=== PATIENT | female | born 1955 ===

== ENCOUNTER 2024-07-10 11:15 | Inpatient (IN) | payer OTHER ==
[~2024-07-10] VITALS: Ht 317.5 cm; Wt 82.1 kg
[2024-07-10 12:49] LABS: COVID-19 AG NEGATIVE (NEGATIVE)
[2024-07-10 13:09] VITALS: BP 112/73
[2024-07-10 13:15] VITALS: BP 135/80
[2024-07-10] MEDS ORDERED: LIPITOR20 MG PO (13:16)
[2024-07-10] MEDS ORDERED: SYNTHROID100 MCG PO (13:16)
[2024-07-10] MEDS ORDERED: MULTIPLE VITAM1 EAC2 PO (13:16)
[2024-07-16] MEDS ORDERED: METHYLPREDNISOLONE SOD SUCC 125 MG VIAL ONE ×3 (06:56→07:03)
[2024-07-16] MEDS ORDERED: VANCOMYCIN HCL 1,000 MG VIAL ONE ×4 (06:57→07:14)
[2024-07-16] MEDS ORDERED: CEFAZOLIN SODIUM 1,000 MG VIAL ONE ×3 (07:01→11:13)
[2024-07-16] MEDS ORDERED: HEMOSTATIC MATRIX 1 KIT KIT TOP ONE (07:01)
[2024-07-16] MEDS ORDERED: METHYLPREDNISOLONE ACETATE 80 MG/ML VIAL ONE ×2 (07:15→08:23)
[2024-07-16] MEDS ORDERED: PERCOCET 5-3251 EACH PO (07:16)
[2024-07-16] MEDS ORDERED: MEDROLPACK PO (07:16)
[2024-07-16] MEDS ORDERED: AMOX-CLAV 875-1 EACH PO (07:17)
[2024-07-16] MEDS ORDERED: ZOFRAN8 MG PO (07:17)
[2024-07-16] MEDS ORDERED: COLACE100 MG PO (07:17)
[2024-07-16] MEDS ORDERED: NEURONTIN800 MG PO (07:18)
[2024-07-16] MEDS ORDERED: GABAPENTIN100 M2 PO (07:18)
[2024-07-16] MEDS ORDERED: ENALAPRILAT DIHYDRATE 1.25 MG/ML VIAL IV PRN (07:45)
[2024-07-16] MEDS ORDERED: 0.9 % SODIUM CHLORIDE 1,000 ML IV SCH (07:45)
[2024-07-16] MEDS ORDERED: PROMETHAZINE HCL 50 MG/ML AMPUL IM PRN (07:45)
[2024-07-16] MEDS ORDERED: CEFAZOLIN SODIUM 1,000 MG in 0.9 % SODIUM CHLORIDE 50 ML IV SCH (09:00)
[2024-07-16] MEDS ORDERED: METHYLPREDNISOLONE SOD SUCC 125 MG VIAL IV SCH (09:00)
[2024-07-16] MEDS ORDERED: MORPHINE SULFATE 4 MG/ML CARTRIDGE IV SCH (09:00)
[2024-07-16] MEDS ORDERED: MORPHINE SULFATE 4 MG/ML VIAL IV ONE ×3 (10:45→12:15)
[2024-07-16] MEDS ORDERED: PROMETHAZINE HCL 50 MG/ML AMPUL IM ONE ×2 (10:56→11:15)
[2024-07-16] MEDS ORDERED: DEXAMETHASONE SODIUM PHOSP/PF 10 MG/ML VIAL ONE (11:24)
[2024-07-16] MEDS ORDERED: METOCLOPRAMIDE HCL 5 MG/ML VIAL ONE (11:24)
[2024-07-16] MEDS ORDERED: METOCLOPRAMIDE HCL 5 MG/ML VIAL IV ONE (11:45)
[2024-07-16] MEDS ORDERED: DEXAMETHASONE SODIUM PHOSP/PF 10 MG/ML VIAL IV ONE (11:45)
[2024-07-16 13:25] VITALS: BP 112/73; O2SAT 98
[2024-07-16 14:54] VITALS: O2SAT 99
[2024-07-16 16:00] VITALS: BP 123/77; O2SAT 100
[2024-07-16] MEDS ORDERED: DOCUSATE SODIUM 100MG CAP PO SCH (17:00)
[2024-07-16] MEDS ORDERED: FAMOtidine 20 MG TABLET PO SCH (17:00)
[2024-07-16 17:19] VITALS: O2SAT 99
[2024-07-16] MEDS ORDERED: ACETAMINOPHEN 500 MG GEL..CAP PO SCH (20:00)
[2024-07-16] MEDS ORDERED: VANCOMYCIN HCL 1,000 MG VIAL IV SCH (21:00)
[2024-07-16] MEDS ORDERED: GABAPENTIN 800 MG TABLET PO SCH (21:00)
[2024-07-16 21:30] VITALS: O2SAT 99
[2024-07-17] VITALS (8 sets, daily range): BP systolic 103–123; BP diastolic 65–76; O2SAT 92–100
[2024-07-17] MEDS ORDERED: SODIUM CHLORIDE 0.45 % 1,000 ML IV SCH
[2024-07-17] MEDS ORDERED: OxyCODONE HCL 5 MG TABLET (ROXICODONE) PO PRN (06:01)
[2024-07-17 06:51] LABS: HEMATOCRIT 31.3 % (34.1-44.9); HEMOGLOBIN 10.3 g/dL (11.2-15.7); LYMPH # 0.59 (1.18-3.74); LYMPH % 6.2 % (19.3-53.1); MEAN CORPUSCULAR HEMOGLOBIN 29.6 pg (25.6-32.2); MONO % 6.3 % (4.7-12.5); NEUT # 8.34 (1.56-6.13); NEUT % 87.3 % (34.0-71.1); PLATELET COUNT 273 K/uL (163-369); RED BLOOD COUNT 3.48 M/uL (3.93-5.22)
[2024-07-17 07:23] LABS: CALCIUM 8.2 mg/dL (8.5-10.1); CREATININE SERUM 0.51 mg/dL (0.55-1.02); GFR 120.28; POTASSIUM 4.98 mEq/L (3.5-5.1)
[2024-07-17] MEDS ORDERED: TAMSULOSIN HCL 0.4 MG CAP PO SCH (09:00)
[2024-07-17 18:27] LABS: COVID-19 AG NEGATIVE (NEGATIVE)
[2024-07-18] VITALS: O2SAT 90
[2024-07-18 00:42] VITALS: BP 107/65; O2SAT 100
[2024-07-18 06:08] VITALS: O2SAT 90
[2024-07-18 08:00] VITALS: BP 116/74; O2SAT 95
[2024-07-18 09:51] VITALS: O2SAT 90
[2024-07-18 17:04] VITALS: BP 110/66; O2SAT 95
== END 2024-07-18 17:46 | disposition home or self-care (01) | DRG 428 ==
LOC: SURH 07-16 09:45 → NUR 07-16 11:53 → SURG 07-16 12:02 → SURH 07-16 12:26
PROVIDERS: ADMIT Orthopaedic Surgery Orthopaedic Surgery of the Spine; ATTEND Orthopaedic Surgery Orthopaedic Surgery of the Spine
PROC: 0SG1071 Fusion of 2 or more Lumbar Vertebral Joints with Autologous Tissue Substitute, Posterior Approach, Posterior Column, Open Approach (ICD-10-PCS; 2024-07-16)
PROC: 0ST20ZZ Resection of Lumbar Vertebral Disc, Open Approach (ICD-10-PCS; 2024-07-16)
PROC: 0QB30ZZ Excision of Left Pelvic Bone, Open Approach (ICD-10-PCS; 2024-07-16)
PROC: 07DR0ZZ Extraction of Iliac Bone Marrow, Open Approach (ICD-10-PCS; 2024-07-16)
PROC: 4A1104G Monitoring of Peripheral Nervous Electrical Activity, Intraoperative, Open Approach (ICD-10-PCS; 2024-07-16)
PROC: 4A12X4Z Monitoring of Cardiac Electrical Activity, External Approach (ICD-10-PCS; 2024-07-16)
PROC: XRGC0R7 Fusion of 2 or more Lumbar Vertebral Joints using Custom-Made Anatomically Designed Interbody Fusion Device, Open Approach, New Technology Group 7 (ICD-10-PCS; principal; 2024-07-16 09:45)
DX: M43.16 Spondylolisthesis, lumbar region (principal); M48.062 Spinal stenosis, lumbar region with neurogenic claudication; E03.9 Hypothyroidism, unspecified; E78.5 Hyperlipidemia, unspecified; I10 Essential (primary) hypertension